=== PATIENT | male | born 1955 | race Caucasian/White ===

== ENCOUNTER 2017-08-15 22:41 | Emergency (ER) | payer BC ==
[~2017-08-15] VITALS: Ht 175.3 cm; Wt 102.0 kg
[2017-08-15 22:53] VITALS: TEMP 36.8; Ht 175.3 cm; Wt 102.0 kg
[2017-08-15] MEDS ORDERED: SODIUM CHLORIDE 0.9% 1000ML 1,000 ML IV STA (22:58)
[2017-08-15] MEDS ORDERED: KETOROLAC TROMETHAMINE 30 MG/ML VIAL IV STA (22:58)
[2017-08-15] MEDS ORDERED: ONDANSETRON INJ 2 MG/ML 2 ML VIAL IV STA (22:58)
[2017-08-15 23:19] LABS: BASO % 0.4 %; BASO ABS # 0.04 K/uL (0-0.2); COMPLETE YES; EOS % 4.7 %; HEMATOCRIT 40.7 % (42-52); IG% 0.7 %; LYMPH % 35.2 %; MEAN CELL VOLUME 97.4 fL (80-100); MEAN CORPUSCULAR HEMOGLOBIN 34.4 pg (25-34); MEAN CORPUSCULAR HGB CONC 35.4 g/dl (32-36); MEAN PLATELET VOLUME 9.2 fL (7.4-10.4); MONO % 8.8 %; NEUT % 50.2 %; PLATELET COUNT 184 K/uL (130-400); RED BLOOD COUNT 4.18 M/uL (4.7-6.1); WHITE BLOOD COUNT 9.37 K/uL (4.8-10.8)
[2017-08-15 23:23] LABS: MANUAL MICROSCOPIC REQUIRED? NO; REVIEW REQ? NO; URINE APPEARANCE CLEAR (CLEAR); URINE BILIRUBIN NEG (NEG); URINE COLOR YELLOW; URINE EPITHELIAL CELL AUTO 0-5 /lpf (0-5); URINE NITRITE NEG (NEG); URINE SPECIFIC GRAVITY 1.021 (1.000-1.030); UROBILINOGEN NEG (NEG); ZZUR CULT IF INDIC CLEAN CATCH NO
[2017-08-15] MEDS ORDERED: METO25TA3 PO (23:29)
[2017-08-15] MEDS ORDERED: ATOR-24 PO (23:29)
[2017-08-15] MEDS ORDERED: LISI-725 PO (23:29)
[2017-08-15] MEDS ORDERED: CLR10 PO (23:29)
[2017-08-15] MEDS ORDERED: SERT50TA PO (23:29)
[2017-08-15] MEDS ORDERED: ASPI81TA28 PO (23:29)
[2017-08-16 00:08] LABS: ALKALINE PHOSPHATASE 104 U/L (45-117); ALT/SGPT 34 U/L (12-78); AST/SGOT 22 U/L (15-37); BLOOD UREA NITROGEN 25 mg/dl (7-18); BUN/CREATININE RATIO 18.6 (10-20); CALCIUM 8.9 mg/dl (8.5-10.1); CARBON DIOXIDE 24 mmol/L (21-32); CHLORIDE 109 mmol/L (98-107); CREATININE 1.32 mg/dl (0.60-1.40); GLUCOSE 96 mg/dl (70-99); POTASSIUM 4.3 mmol/L (3.5-5.1); SODIUM 142 mmol/L (136-145)
[2017-08-16] MEDS ORDERED: TAMS0.4C38 PO (00:11)
[2017-08-16] MEDS ORDERED: OXYC-57 PO (00:11)
[2017-08-16] MEDS ORDERED: TAMSULOSIN HCL 0.4 MG CAP PO ONE (00:15)
[2017-08-16] MEDS ORDERED: PERCOCET HOME PACK PO ONE (00:15)
--- NOTE | 2017-08-16 00:16 | EMERGENCY ROOM VISIT NOTE ---
History Report prepared by Luther: Melanie Shore Under the Supervision of: Dr. Nolan Welch D.O. First contact with patient: 22:58 Chief Complaint: FLANK PAIN Stated Complaint: AB PAIN History of Present Illness The patient is a 62 year old male who presents to the Emergency Room with complaints of resolved flank pain beginning today. The patient states that he has been having flank pain on the [] side that came on suddenly. He reports that the pain has been radiating into his groin and feels similar to his previous kidney stones. He complains of nausea, vomiting, and testicular pain. The patient denies any back pain and notes that most of his pain has subsided. Source of History: patient Onset: today Position: other (flank) Timing: resolved Associated Symptoms: + nausea, + vomiting, No back pain Note: Pt complains of groin pain and testicular pain. Review of Systems See HPI for pertinent positives & negatives. A total of 10 systems reviewed and were otherwise negative. Past Medical & Surgical Medical Problems: (1) Kidney stone (2) No Known Active Medical Problems Family History No pertinent family history stated. Social History Smoking Status: Never Smoker Housing Status: lives with family Occupation Status: employed Current/Historical Medications Scheduled Aspirin (Aspirin Ec), 81 MG PO DAILY Atorvastatin (Lipitor), 40 MG PO DAILY Lisinopril (Zestril), 20 MG PO DAILY Loratadine (Claritin), 10 MG PO DAILY Metoprolol Succinate (Toprol Xl), 25 MG PO DAILY Sertraline (Zoloft), 50 MG PO DAILY Tamsulosin Hcl (Flomax), 0.4 MG PO HS Scheduled PRN Oxycodone/Acetaminophen 5MG/325MG (Percocet 5MG/325MG), 1 TAB PO Q6H PRN for Pain Allergies Coded Allergies: No Known Allergies (Unverified , 08/15/17) Physical Exam Vital Signs Date Time Temp Pulse Resp B/P (MAP) Pulse Ox O2 Delivery O2 Flow Rate FiO2 08/15/17 23:04 76 08/15/17 22:53 36.8 81 168/98 95 Room Air Physical Exam CONSTITUTIONAL/VITAL SIGNS: Reviewed / noted above. GENERAL: Non-toxic in appearance. INTEGUMENTARY: Warm, dry, and [place]. HEAD: Normocephalic. EYES: without scleral icterus or trauma. ENT/OROPHARYNX: clear and moist. LYMPHADENOPATHY/NECK: Is supple without lymphadenopathy or meningismus. RESPIRATORY: Lungs clear and equal. CARDIOVASCULAR: Regular rate and rhythm. GI/ABDOMEN: Soft and nontender. No organomegaly or pulsatile mass. No rebound or guarding. Normal bowel sounds. EXTREMITIES: Warm and well perfused. BACK: No CVA tenderness. NEUROLOGICAL: Intact without focal deficits. PSYCHIATRIC: normal affect. MUSCULOSKELETAL: Normally developed with good muscle tone. Medical Decision & Procedures ER Provider Diagnostic Interpretation: CT results as stated below per my review and radiologist interpretation: CT ABDOMEN & PELVIS Without Contrast: 2 approximating stones suspected within the right mid to distal ureter at the L5 level with resultant mild proximal obstruction. Additional small nonobstructing right nephrolithiasis present. Left -sided preipelvic renal cysts. Bladder wall thickness likely accentuated secondary to decompressed state. Laboratory Results 08/15/17 23:00 Red Blood Count 4.18, Mean Corpuscular Volume 97.4, Mean Corpuscular Hemoglobin 34.4, Mean Corpuscular Hemoglobin Concent 35.4, Mean Platelet Volume 9.2, Neutrophils (%) (Auto) 50.2, Lymphocytes (%) (Auto) 35.2, Monocytes (%) (Auto) 8.8, Eosinophils (%) (Auto) 4.7, Basophils (%) (Auto) 0.4, Neutrophils # (Auto) 4.70, Lymphocytes # (Auto) 3.30, Monocytes # (Auto) 0.82, Eosinophils # (Auto) 0.44, Basophils # (Auto) 0.04 08/15/17 23:00 Test 08/15/17 23:00 White Blood Count 9.37 K/uL (4.8-10.8) Red Blood Count 4.18 M/uL (4.7-6.1) Hemoglobin 14.4 g/dL (14.0-18.0) Hematocrit 40.7 % (42-52) Mean Corpuscular Volume 97.4 fL (80-100) Mean Corpuscular Hemoglobin 34.4 pg (25-34) Mean Corpuscular Hemoglobin Concent 35.4 g/dl (32-36) Platelet Count 184 K/uL (130-400) Mean Platelet Volume 9.2 fL (7.4-10.4) Neutrophils (%) (Auto) 50.2 % Lymphocytes (%) (Auto) 35.2 % Monocytes (%) (Auto) 8.8 % Eosinophils (%) (Auto) 4.7 % Basophils (%) (Auto) 0.4 % Neutrophils # (Auto) 4.70 K/uL (1.4-6.5) Lymphocytes # (Auto) 3.30 K/uL (1.2-3.4) Monocytes # (Auto) 0.82 K/uL (0.11-0.59) Eosinophils # (Auto) 0.44 K/uL (0-0.5) Basophils # (Auto) 0.04 K/uL (0-0.2) RDW Standard Deviation 44.5 fL (36.4-46.3) RDW Coefficient of Variation 12.6 % (11.5-14.5) Immature Granulocyte % (Auto) 0.7 % Immature Granulocyte # (Auto) 0.07 K/uL (0.00-0.02) Urine Color YELLOW Urine Appearance CLEAR (CLEAR) Urine pH 5.0 (4.5-7.5) Urine Specific [place] 1.021 (1.000-1.030) Urine Protein NEG (NEG) Urine Glucose (UA) NEG (NEG) Urine Ketones NEG (NEG) Urine Occult Blood 3+ (NEG) Urine Nitrite NEG (NEG) Urine Bilirubin NEG (NEG) Urine Urobilinogen NEG (NEG) Urine Leukocyte Esterase NEG (NEG) Urine WBC (Auto) 1-5 /hpf (0-5) Urine RBC (Auto) >30 /hpf (0-4) Urine Hyaline Casts (Auto) 1-5 /lpf (0-5) Urine Epithelial Cells (Auto) 0-5 /lpf (0-5) Urine Bacteria (Auto) NEG (NEG) Anion Gap 9.0 mmol/L (3-11) Est Creatinine Clear Calc Drug Dose 66.6 ml/min Estimated GFR () 65.6 Estimated GFR (Non- 56.6 BUN/Creatinine Ratio 18.6 (10-20) Calcium Level 8.9 mg/dl (8.5-10.1) Total Bilirubin 0.3 mg/dl (0.2-1) Direct Bilirubin mg/dl (0-0.2) Aspartate Amino Transf (AST/SGOT) 22 U/L (15-37) Alanine Aminotransferase (ALT/SGPT) 34 U/L (12-78) Alkaline Phosphatase 104 U/L (45-117) Total Protein 7.2 gm/dl (6.4-8.2) Albumin 3.6 gm/dl (3.4-5.0) Lipase 165 U/L (73-393) Chemistry Specimen Hemolysis Laboratory results as stated above per my review. Medications Administered Medications (Trade) Dose Ordered Sig/Ger Route Start Time Stop Time Status Last Admin Dose Admin Sodium Chloride 1,000 ml @ 999 mls/hr Q1H1M STAT IV 08/15/17 22:58 08/15/17 23:58 DC 08/15/17 23:53 999 MLS/HR Tamsulosin HCl (Flomax Cap) 0.4 mg NOW ONCE PO 08/16/17 00:15 08/16/17 00:16 DC 08/16/17 00:35 0.4 MG Oxycodone/ Acetaminophen (Percocet 5/ 325MG Home Pack) 1 homepack UD ONCE PO 08/16/17 00:15 08/16/17 00:16 DC 08/16/17 00:35 1 HOMEPACK ED Course 2258: Previous medical records were reviewed. The patient was evaluated in room B9. A complete history and physical examination was performed. 2258: Toradol Inj 30mg IV, Zofran Inj 4mg IV, Sodium Chloride 1000 ml @ 999 mls/ hr IV. 0015: Oxycodone/Acetaminophen 1 homepack PO, Flomax Cap 0.4mg PO. 0028: On reevaluation, the patient is doing well. I discussed the results and findings with the patient. He verbalized agreement of the treatment plan. The patient was discharged home. Medical Decision Differential diagnosis: Etiologies such as renal colic, appendicitis, diverticulitis, mesenteric ischemia, aortic pathology, infections, inflammatory bowel disease, PUD, biliary pathology, UTI, as well as others were entertained. This is a 62-year-old male who presents to the ED with a chief complaint of right sided abdominal pain. The patient's symptoms were sudden in onset. It occurred just prior to arrival. The pain radiates into the right groin. It was associated with nausea and vomiting. He states that the majority the pain is somewhat subsided on my evaluation. The patient has stable vital signs. He is afebrile. His physical exam did not reveal any obvious CVA tenderness or abdominal tenderness. A CT scan of the abdomen and pelvis reveals a right ureteral stone. Blood work is unremarkable. Urine did not show infection. The patient was given IV fluids, IV Toradol and IV Zofran. He was given by mouth Flomax. Urine strainer was provided. The patient will be discharged on Percocet and Flomax. He was also told to take ibuprofen 60 mg every 6 hours. He is felt with his urologist/PCP this week for recheck. Medication Reconcilliation Current Medication List: was personally reviewed by me Blood Pressure Screening Patient's blood pressure: Elevated blood pressure Blood pressure disposition: Elevated BP felt to be situational Impression Primary Impression: Renal colic Additional Impression: Right ureteral calculus Scribe Attestation The scribe's documentation has been prepared under my direction and personally reviewed by me in its entirety. I confirm that the note above accurately reflects all work, treatment, procedures, and medical decision making performed by me. Departure Information Dispostion Home / Self-Care Prescriptions Tamsulosin Hcl (FLOMAX) 0.4 Mg Cap 0.4 MG PO HS, #10 CAP Prov: Nolan Welch D.O. 08/16/17 Oxycodone/Acetaminophen 5MG/325MG (PERCOCET 5MG/325MG) Tab 1 TAB PO Q6H Y for Pain, #20 TAB Prov: Nolan Welch D.O. 08/16/17 Patient Instructions Kidney Stone Urine, [facility] Additional Instructions Strain urine for stone. Percocet as prescribed. No driving within 6 hours of use. Do not take additional Tylenol while taking Percocet. Flomax as prescribed. Take ibuprofen 600 mg every 6 hours for pain. Drink plenty of fluids. Return for fevers, vomiting or other significant or worsening symptoms. Follow-up with your family doctor or urologist early this week for recheck if stone has not passed. Problem Qualifiers
[2017-08-16 01:08] VITALS: BP 133/76; PULSE 75; O2SAT 96
--- NOTE | 2017-08-16 06:26 | DIAGNOSTIC IMAGING REPORT ---
CT SCAN OF THE ABDOMEN AND PELVIS WITHOUT CONTRAST CLINICAL HISTORY: flank pain COMPARISON STUDY: No previous studies for comparison. TECHNIQUE: CT scan of the abdomen and pelvis was performed from the lung bases to the proximal femurs. Images are reviewed in the axial, sagittal, and coronal planes. IV contrast was not administered for this examination. A dose lowering technique was utilized adhering to the principles of ALARA. CT DOSE: 1672.93 mGy.cm FINDINGS: Lower chest: There are coronary artery calcifications present. There are mild basilar atelectatic changes present. Liver: The unenhanced liver is normal in size, contour, and attenuation. There is no intrahepatic biliary ductal dilatation. Gallbladder: Unremarkable. Spleen: Normal in size and attenuation. Pancreas: Unremarkable. Adrenal glands: Unremarkable. Kidneys: 2 right renal calculi are visualized, the largest of which measures 6 mm. There is a 17 mm left renal hypodense lesion, likely representing a cyst. There is a too small to characterize 8 mm hyperdense right renal lesion possibly representing a hyperdense cyst. There are left renal parapelvic cysts. There are 2 right mid ureteral calculi at the L5 level. The largest measures 7 mm. Bowel: There are no transition zones to indicate bowel obstruction. There are no findings to indicate acute appendicitis. There are no findings to indicate acute diverticulitis. Peritoneum: There is no intraperitoneal free air or abdominal ascites. Vasculature: The abdominal aorta is normal in course and caliber. Adenopathy: None. Pelvic viscera: There is mild bladder wall thickening, likely secondary to a decompressed bladder Skeletal structures: No destructive osseous lesions are seen. IMPRESSION: 1. Right-sided nephrolithiasis 2. There are 2 tangential right mid ureteral calculi L5 level. The largest measures 7 mm. There are mild secondary obstructive changes 3. No evidence of bowel obstruction. No evidence of free air. Electronically signed by: Mark Gilmore M.D. 08/16/2017 6:24 AM Dictated Date/Time: 08/16/2017 6:19 AM
== END 2017-08-16 01:09 | disposition home or self-care (01) ==
LOC: C.EDB 22:47
DX: N23 Unspecified renal colic (principal); N20.0 Calculus of kidney; Z87.442 Personal history of urinary calculi; Z79.82 Long term (current) use of aspirin; Z79.899 Other long term (current) drug therapy